=== PATIENT | male | born 1970 | race Caucasian/White ===

== ENCOUNTER → 2017-07-11 | Outpatient (CLI) | payer BC ==
[2017-07-11 07:35] LABS: HGB 15.4 gm/dL (13.0-17.5); MCH 28.7 pg (25.0-35.0); MCHC 31.4 g/dL (31.0-37.0); MCV 91.4 fL (80.0-100.0); Platelet Count 184 k/uL (150-450); RBC 5.36 m/uL (4.30-5.90); RDW 14.5 % (11.5-15.5); WBC 4.6 k/uL (3.8-10.6)
[2017-07-11 07:50] LABS: Albumin 4.6 g/dL (3.5-5.0); Bilirubin, Delta 0.2 mg/dL (0.0-0.2); Bilirubin,Unconjugated 0.2 mg/dL (0.0-1.1); Total Bilirubin 0.4 mg/dL (0.2-1.3); Total Protein 7.1 g/dL (6.3-8.2)
== END | disposition home or self-care (01) ==
LOC: LABWHC1 06:43
PROVIDERS: ATTEND Internal Medicine
DX: F64.0 Transsexualism (principal)
CPT/HCPCS: 36415; 80076; 84403; 85027

== ENCOUNTER → 2018-03-04 | Outpatient (CLI) | payer BC ==
[2018-03-04 09:14] LABS: HCT 50.6 % (39.0-53.0); HGB 16.1 gm/dL (13.0-17.5); MCH 29.2 pg (25.0-35.0); MCHC 31.8 g/dL (31.0-37.0); MCV 91.8 fL (80.0-100.0); Mean Platelet Volume 7.1; Platelet Count 170 k/uL (150-450); RBC 5.51 m/uL (4.30-5.90); RDW 13.4 % (11.5-15.5); WBC 4.5 k/uL (3.8-10.6)
[2018-03-04 09:18] LABS: ALT 29 U/L (21-72); AST 26 U/L (17-59); Albumin 4.4 g/dL (3.5-5.0); Alkaline Phosphatase 68 U/L (38-126); Anion Gap 8 mmol/L; Blood Urea Nitrogen 15 mg/dL (9-20); Calcium 9.8 mg/dL (8.4-10.2); Carbon Dioxide 27 mmol/L (22-30); Chloride 107 mmol/L (98-107); Cholesterol 191 mg/dL (<200); Glucose 86 mg/dL (74-99); HDL Cholesterol 57 mg/dL (40-60); LDL Cholesterol,Calculated 121 mg/dL (0-99); Potassium 4.3 mmol/L (3.5-5.1); Sodium 142 mmol/L (137-145); Total Bilirubin 0.5 mg/dL (0.2-1.3); Triglycerides 65 mg/dL (<150)
[2018-03-04 18:37] LABS: Hemoglobin A1C 4.9 % (4.0-6.0)
== END | disposition home or self-care (01) ==
LOC: LABWHC1 08:34
PROVIDERS: ATTEND Internal Medicine
DX: F64.0 Transsexualism (principal); E04.1 Nontoxic single thyroid nodule; Z83.3 Family history of diabetes mellitus
CPT/HCPCS: 36415; 80053; 80061; 83036; 84403; 84443; 85027

== ENCOUNTER → 2019-01-06 | Outpatient (CLI) | payer BC ==
[2019-01-06 08:41] LABS: HCT 47.5 % (39.0-53.0); HGB 15.2 gm/dL (13.0-17.5); MCH 28.4 pg (25.0-35.0); MCV 88.8 fL (80.0-100.0); Mean Platelet Volume 6.9; Platelet Count 175 k/uL (150-450); RBC 5.35 m/uL (4.30-5.90); RDW 13.5 % (11.5-15.5); WBC 4.5 k/uL (3.8-10.6)
[2019-01-06 17:04] LABS: African American GFR (CKD) 117.5 (60.0-200.0); Albumin 4.6 g/dL (3.80-4.90); Albumin/Globulin Ratio 2.71 (1.60-3.17); Anion Gap 10.4 mmol/L (4.00-12.00); BUN/Creat Ratio 12.22 Ratio (12.00-20.00); Calcium 9.6 mg/dL (8.7-10.3); Carbon Dioxide 24.6 mmol/L (21.6-31.8); Globulin 1.7 g/dL (1.6-3.3); Potassium 3.9 mmol/L (3.5-5.5); Total Bilirubin 0.8 mg/dL (0.2-1.2); Total Protein 6.3 g/dL (6.2-8.2)
== END | disposition home or self-care (01) ==
LOC: LABWHC1 08:11
PROVIDERS: ATTEND Internal Medicine
DX: F64.0 Transsexualism (principal); E78.5 Hyperlipidemia, unspecified; E04.1 Nontoxic single thyroid nodule
CPT/HCPCS: 36415; 80053; 80061; 84403; 84443; 85027

== ENCOUNTER → 2020-01-28 | Outpatient (CLI) | payer BC ==
[2020-01-28 08:48] LABS: HCT 47.5 % (39.0-53.0); HGB 15.2 gm/dL (13.0-17.5); MCH 28.8 pg (25.0-35.0); MCHC 32.1 g/dL (31.0-37.0); Mean Platelet Volume 8.1; Platelet Count 164 k/uL (150-450); RBC 5.28 m/uL (4.30-5.90); RDW 12.7 % (11.5-15.5); WBC 3.9 k/uL (3.8-10.6)
[2020-01-28 17:20] LABS: African American GFR (CKD) 116.6 (60.0-200.0); Albumin 4.5 g/dL (3.80-4.90); Albumin/Globulin Ratio 2.37 (1.60-3.17); Anion Gap 3.7 mmol/L (4.00-12.00); BUN/Creat Ratio 17.78 Ratio (12.00-20.00); Carbon Dioxide 30.3 mmol/L (21.6-31.8); Globulin 1.9 g/dL (1.6-3.3); Non-African American GFR(CKD) 100.6 (60.0-200.0); Potassium 4.9 mmol/L (3.5-5.5); Total Bilirubin 0.6 mg/dL (0.3-1.2); Total Protein 6.4 g/dL (6.2-8.2)
== END | disposition home or self-care (01) ==
LOC: LABWHC1 07:12
PROVIDERS: ATTEND Internal Medicine
DX: E04.1 Nontoxic single thyroid nodule (principal); F64.0 Transsexualism
CPT/HCPCS: 36415; 80053; 84403; 84443; 85027

== ENCOUNTER → 2021-02-09 | Outpatient (CLI) | payer BC ==
[2021-02-09 11:54] LABS: HCT 47.6 % (39.6-50.0); HGB 15.2 g/dL (13.0-17.0); MCH 28.8 pg (27.0-32.0); MCHC 31.9 g/dL (32.0-37.0); MCV 90.3 fL (80.0-97.0); Mean Platelet Volume 10.9 fL (9.5-12.2); Platelet Count 181 X 10*3/uL (140-440); RBC 5.27 X 10*6/uL (4.40-5.60); RDW 13.2 % (11.5-14.5); WBC 4.83 X 10*3/uL (4.50-10.00)
[2021-02-09 11:55] LABS: African American GFR (CKD) 90.9 (60.0-200.0); Albumin 4.5 g/dL (3.80-4.90); Albumin/Globulin Ratio 2.14 (1.60-3.17); Anion Gap 7.9 mmol/L (4.00-12.00); BUN/Creat Ratio 16.36 Ratio (12.00-20.00); Carbon Dioxide 29.1 mmol/L (21.6-31.8); Chol/HDL Ratio 3.95; Globulin 2.1 g/dL (1.6-3.3); LDL Cholesterol,Calculated 147.2 mg/dL (0.0-131.0); Non-African American GFR(CKD) 78.4 (60.0-200.0); Potassium 4.2 mmol/L (3.5-5.5); Total Bilirubin 0.5 mg/dL (0.2-1.2); Total Protein 6.6 g/dL (6.2-8.2); VLDL Calculation 29.8 mg/dL (5.00-40.00)
== END | disposition home or self-care (01) ==
LOC: LABWHC1 07:06
PROVIDERS: ATTEND Internal Medicine
DX: E78.5 Hyperlipidemia, unspecified (principal); E04.1 Nontoxic single thyroid nodule; F64.0 Transsexualism
CPT/HCPCS: 36415; 80053; 80061; 84403; 84443; 85027

== ENCOUNTER → 2021-10-06 | Outpatient (CLI) | payer BC ==
[2021-10-06 10:19] LABS: HCT 46.7 % (39.6-50.0); HGB 15.1 g/dL (13.0-17.0); MCH 28.9 pg (27.0-32.0); MCHC 32.3 g/dL (32.0-37.0); MCV 89.5 fL (80.0-97.0); Mean Platelet Volume 10.6 fL (9.5-12.2); NRBC Per 100 WBC 0 /100 WBCS (0.0-0.0); Platelet Count 208 X 10*3/uL (140-440); RBC 5.22 X 10*6/uL (4.40-5.60); RDW 12.8 % (11.5-14.5)
== END | disposition home or self-care (01) ==
LOC: LABWHC1 07:16
PROVIDERS: ATTEND Internal Medicine
DX: Z78.9 Other specified health status (principal)
CPT/HCPCS: 36415; 84403; 85027

== ENCOUNTER → 2022-04-15 | Outpatient (CLI) | payer BC ==
[2022-04-15 14:31] LABS: HCT 44.7 % (39.6-50.0); HGB 15.3 g/dL (13.0-17.0); MCHC 34.2 g/dL (32.0-37.0); MCV 87.6 fL (80.0-97.0); Mean Platelet Volume 10.8 fL (9.5-12.2); NRBC Per 100 WBC 0 /100 WBCS (0.0-0.0); Platelet Count 208 X 10*3/uL (140-440); RDW 13.2 % (11.5-14.5); WBC 3.98 X 10*3/uL (4.50-10.00)
[2022-04-15 15:12] LABS: ALT 14 U/L (10-49); AST 17 U/L (14-35); African American GFR (CKD) 101.3 (60.0-200.0); Albumin 4.8 g/dL (3.8-4.9); Alkaline Phosphatase 65 U/L (41-126); Blood Urea Nitrogen 10.5 mg/dL (9.0-27.0); Chloride 101 mmol/L (96-109); Glucose 92 mg/dL (70-110); Non-African American GFR(CKD) 87.4 (60.0-200.0); Potassium 4.2 mmol/L (3.5-5.5); Sodium 139 mmol/L (135-145); Total Protein 6.8 g/dL (6.2-8.2)
== END | disposition home or self-care (01) ==
LOC: LABWHC1 08:35
PROVIDERS: ATTEND Internal Medicine
DX: E04.1 Nontoxic single thyroid nodule (principal); Z78.9 Other specified health status; Z83.3 Family history of diabetes mellitus
CPT/HCPCS: 36415; 80053; 83036; 84403; 84443; 85027

== ENCOUNTER → 2022-10-22 | Outpatient (CLI) | payer BC ==
[2022-10-22 20:37] LABS: ALT 21 U/L (10-49); AST 27 U/L (14-35); African American GFR (CKD) 114.2 (60.0-200.0); Albumin 5.5 g/dL (3.8-4.9); Albumin/Globulin Ratio 2.75 (1.60-3.17); Alkaline Phosphatase 67 U/L (41-126); Calcium 10.5 mg/dL (8.7-10.3); Carbon Dioxide 24.2 mmol/L (20.0-27.5); Chloride 100 mmol/L (96-109); Glucose 83 mg/dL (70-110); Non-African American GFR(CKD) 98.5 (60.0-200.0); Potassium 4.5 mmol/L (3.5-5.5); Sodium 141 mmol/L (135-145); Total Protein 7.5 g/dL (6.2-8.2)
[2022-10-22 22:57] LABS: HCT 49.2 % (39.6-50.0); HGB 15.5 g/dL (13.0-17.0); MCH 28.9 pg (27.0-32.0); MCHC 31.5 g/dL (32.0-37.0); MCV 91.6 fL (80.0-97.0); Mean Platelet Volume 11.9 fL (9.5-12.2); NRBC Per 100 WBC 0 /100 WBCS (0.0-0.0); Platelet Count 178 X 10*3/uL (140-440); RBC 5.37 X 10*6/uL (4.40-5.60); RDW 13.1 % (11.5-14.5); WBC 3.97 X 10*3/uL (4.50-10.00)
== END | disposition home or self-care (01) ==
LOC: LABWHC1 13:12
PROVIDERS: ATTEND Internal Medicine
DX: E04.1 Nontoxic single thyroid nodule (principal); Z78.9 Other specified health status; Z83.3 Family history of diabetes mellitus
CPT/HCPCS: 36415; 80053; 83036; 84403; 84443; 85027

== ENCOUNTER → 2023-01-10 | Outpatient (CLI) | payer BC ==
[2023-01-10 22:09] LABS: Calcium 10.4 mg/dL (8.7-10.3)
== END | disposition home or self-care (01) ==
LOC: LABWHC1 14:08
PROVIDERS: ATTEND Internal Medicine
DX: E83.52 Hypercalcemia (principal); Z78.9 Other specified health status
CPT/HCPCS: 36415; 82306; 82310; 83970; 84403

== ENCOUNTER → 2023-04-19 | Outpatient (CLI) | payer BC ==
[2023-04-19 19:46] LABS: Calcium 9.9 mg/dL (8.7-10.3)
== END | disposition home or self-care (01) ==
LOC: LABWHC1 13:49
PROVIDERS: ATTEND Internal Medicine
DX: E83.52 Hypercalcemia (principal); Z78.9 Other specified health status
CPT/HCPCS: 36415; 82306; 82310; 84403

== ENCOUNTER 2023-05-01 18:53 | Emergency (ER) | payer BC ==
[2023-05-01 19:15] VITALS: TEMP 98.5
--- NOTE | 2023-05-01 19:49 | ED ---
General Adult HPI - General Chief complaint: Urogenital Stated complaint: UTI Time Seen by Provider: 05/01/23 19:13 Source: patient Mode of arrival: ambulatory Limitations: no limitations - History of Present Illness Initial comments: 53-year-old female to male presents to the ED with a chief complaint of dysuria. Patient states for the past 2 days she has had dysuria frequency and urgency. Since onset reports pain has worsened in severity. Denies flank pain. Eyes fever or chills. No chest pain shortness of breath. No other complaints. - Related Data Allergies Allergy/AdvReac Type Severity Reaction Status Date / Time No Known Allergies Allergy Verified 05/01/23 19:01 Review of Systems ROS Statement: Those systems with pertinent positive or pertinent negative responses have been documented in the HPI. ROS Other: All systems not noted in ROS Statement are negative. Past Medical History Past Medical History: CVA/TIA History of Any Multi-Drug Resistant Organisms: None Reported Past Psychological History: No Psychological Hx Reported Smoking Status: Never smoker Past Alcohol Use History: Occasional Past Drug Use History: None Reported General Exam Limitations: no limitations General appearance: alert, in no apparent distress Neck exam: Present: normal inspection Respiratory exam: Present: normal lung sounds bilaterally Cardiovascular Exam: Present: regular rate, normal rhythm GI/Abdominal exam: Present: soft (Suprapubic tenderness to palpation. No rebound guarding or rigidity.) Neurological exam: Present: alert, oriented X3 Skin exam: Present: warm, dry Course Vital Signs 05/01/23 18:57 Temperature 98.5 F Pulse Rate 75 Respiratory 18 Rate Blood Pressure 135/89 O2 Sat by Pulse 99 Oximetry Medical Decision Making - Medical Decision Making Was pt. sent in by a medical professional or institution (Dr. PA, FUR MATCHER, urgent care, hospital, or [facility]...) When possible be specific @ -No Did you speak to anyone other than the patient for history (EMS, parent, family, police, friend...)? What history was obtained from this source @ -No Did you review nursing and triage notes (agree or disagree)? Why? @ -I reviewed and agree with nursing and triage notes Were old charts reviewed (outside hosp., previous admission, EMS record, old EKG, old radiological studies, urgent care reports/EKG's, [facility] records)? Report findings @ -No old charts were reviewed Differential Diagnosis (chest pain, altered mental status, abdominal pain women, abdominal pain men, vaginal bleeding, weakness, fever, dyspnea, syncope, headache, dizziness, GI bleed, back pain, seizure, CVA, palpatations, mental health, musculoskeletal)? @ -Differential Abdominal Pain Women: Appendicitis, Cholecystitis, diverticulosis, ischemic bowel, pancreatitis, hepatitis, UTI, gastroenteritis, AAA, incarcerated hernia, bowel obstruction, constipation, inflammatory bowel, hepatitis, peptic ulcer disease, splenic infarction, perforated viscus, vulvitis, ovarian torsion, PID, kidney stone, placenta abruption, this is not meant to be an all-inclusive list EKG interpreted by me (3pts min.). @ -None X-rays interpreted by me (1pt min.). @ -None done CT interpreted by me (1pt min.). @ -None done U/S interpreted by me (1pt. min.). @ -None done What testing was considered but not performed or refused? (CT, X-rays, U/S, labs)? Why? @ -None What meds were considered but not given or refused? Why? @ -None Did you discuss the management of the patient with other professionals (professionals i.e. , PA, FUR MATCHER, lab, RT, psych nurse, drug abuse social worker, area representative, teacher, health promotion officer, social work case manager)? Give summary @ -No Was smoking cessation discussed for >3mins.? @ -No Was critical care preformed (if so, how long)? @ -No Were there social determinants of health that impacted care today? How? (Homeles sness, low income, unemployed, alcoholism, drug addiction, transportation, low edu. Level, literacy, decrease access to med. care, [facility], rehab)? @ -No Was there de-escalation of care discussed even if they declined (Discuss DNR or withdrawal of care, Hospice)? DNR status @ -No What co-morbidities impacted this encounter? (DM, HTN, Smoking, COPD, CAD, Cancer, CVA, ARF, Chemo, Hep., AIDS, mental health diagnosis, sleep apnea, morbid obesity)? @ -None Was patient admitted / discharged? Hospital course, mention meds given and route, prescriptions, significant lab abnormalities, going to OR and other pertinent info. @ -Discharge 53-year-old female to male presenting to the ED with a chief complaint of dysuria. UA here shows no significant evidence of infection. Patient denies vaginal discharge or concerns for STD. However at this time urine sample sent for chlamydia and gonorrhea testing. Patient reports that he bought Azo yesterday. Advises continuing this and follow up with PCP. At this time, patient is not having any flank tenderness to percussion or fever. Charged home in stable condition with stable vital signs, afebrile. Discussed return precautions with patient who verbalized agreement. Undiagnosed new problem with uncertain prognosis? @ -No Drug Therapy requiring intensive monitoring for toxicity (Heparin, Nitro, Insulin, Cardizem)? @ -No Were any procedures done? @ -No Diagnosis/symptom? @ -Dysuria Acute, or Chronic, or Acute on Chronic? @ -Acute Uncomplicated (without systemic symptoms) or Complicated (systemic symptoms)? @ -Uncomplicated Side effects of treatment? @ -No Exacerbation, Progression, or Severe Exacerbation? @ -No Poses a threat to life or bodily function? How? (Chest pain, USA, SC, pneumonia, PE, COPD, DKA, ARF, appy, cholecystitis, CVA, Diverticulitis, Homicidal, Suicidal, threat to staff... and all critical care pts) @ -No - Lab Data Lab Results 05/01/23 Range/Units 19:47 Urine Color Colorless Urine Appearance Clear (Clear) Urine pH 6.0 (5.0-8.0) Ur Specific Spurger 1.002 (1.001-1.035) Urine Protein Negative (Negative) Urine Glucose (UA) Negative (Negative) Urine Ketones Negative (Negative) Urine Blood Trace H (Negative) Urine Nitrite Negative (Negative) Urine Bilirubin Negative (Negative) Urine Urobilinogen <2.0 (<2.0) mg/dL Ur Leukocyte Esterase Small H (Negative) Urine WBC 2 (0-5) /hpf Disposition Clinical Impression: Dysuria Disposition: HOME SELF-CARE Condition: Good Additional Instructions: Please return to the Emergency Department if symptoms worsen or any other concerns. Continue taking Azo as needed for pain. 200 mg 3 times daily for up to 2 days. Follow-up with your primary care provider. Is patient prescribed a controlled substance at d/c from ED?: No Referrals: Marleen Trujillo MD [Primary Care Provider] - 1-2 days Time of Disposition: 20:50
[2023-05-01 20:27] LABS: Appearance,Urine Clear (Clear); Bilirubin,Urine Negative (Negative); Blood,Urine Trace (Negative); Color,Urine Colorless; Glucose,Urine (UA) Negative (Negative); Ketones,Urine Negative (Negative); Leukocyte Esterase,Urine Small (Negative); Nitrite,Urine Negative (Negative); Protein,Urine Negative (Negative); Specific Gravity,Urine 1.002 (1.001-1.035); Urobilinogen,Urine <2.0 mg/dL (<2.0); WBC,Urine 2 /hpf (0-5)
[2023-05-01 21:23] VITALS: BP 123/81; PULSE 81; RESP 16
== END 2023-05-01 21:11 | disposition home or self-care (01) ==
LOC: EC 18:53
DX: R30.0 Dysuria (principal)
CPT/HCPCS: 81001; 87491; 87591; 99283

== ENCOUNTER → 2023-10-18 | Outpatient (CLI) | payer BC ==
[2023-10-18 21:01] LABS: Calcium 10.5 mg/dL (8.7-10.3)
== END | disposition home or self-care (01) ==
LOC: LABWHC1 14:37
PROVIDERS: ATTEND Internal Medicine
DX: E83.52 Hypercalcemia (principal); Z78.9 Other specified health status
CPT/HCPCS: 36415; 82306; 82310; 84403

== ENCOUNTER → 2023-10-27 | Outpatient (CLI) | payer BC ==
[2023-10-27 18:58] LABS: HCT 47.7 % (39.6-50.0); HGB 15.2 g/dL (13.0-17.0); MCHC 31.9 g/dL (32.0-37.0); MCV 90.9 FL (80.0-97.0); Mean Platelet Volume 11.3 FL (9.5-12.2); NRBC Per 100 WBC 0 X 10*3/uL (0.00-0.01); Platelet Count 201 X 10*3/uL (140-440); RBC 5.25 X 10*6/uL (4.40-5.60); RDW 13.3 % (11.5-14.5); WBC 4.51 X 10*3/uL (4.50-10.00)
[2023-10-27 19:17] LABS: ALT 23 U/L (10-49); AST 27 U/L (14-35); Albumin 5.2 g/dL (3.8-4.9); Albumin/Globulin Ratio 2.36 Ratio (1.60-3.17); Alkaline Phosphatase 64 U/L (41-126); BUN/Creat Ratio 10.56 Ratio (12.00-20.00); Blood Urea Nitrogen 9.5 mg/dL (9.0-27.0); Calcium 10.5 mg/dL (8.7-10.3); Carbon Dioxide 21.7 mmol/L (21.6-31.8); Chloride 103 mmol/L (96-109); Globulin 2.2 g/dL (1.6-3.3); Glucose 100 mg/dL (70-110); Sodium 142 mmol/L (135-145); Total Bilirubin 0.4 mg/dL (0.3-1.2); Total Protein 7.4 g/dL (6.2-8.2)
== END | disposition home or self-care (01) ==
LOC: LABWHC1 14:51
PROVIDERS: ATTEND Internal Medicine
DX: E04.1 Nontoxic single thyroid nodule (principal); Z78.9 Other specified health status
CPT/HCPCS: 36415; 80053; 84443; 85027

== ENCOUNTER → 2024-05-05 | Outpatient (CLI) | payer BC ==
[2024-05-05 22:50] LABS: HCT 47.3 % (37.2-46.3); HGB 14.9 g/dL (12.0-15.0); MCH 28.9 pg (27.0-32.0); MCHC 31.5 g/dL (32.0-37.0); MCV 91.7 FL (80.0-97.0); Mean Platelet Volume 11.3 FL (9.5-12.2); NRBC Per 100 WBC 0 X 10*3/uL (0.00-0.01); Platelet Count 197 X 10*3/uL (140-440); RBC 5.16 X 10*6/uL (4.10-5.20); RDW 13.8 % (11.5-14.5)
[2024-05-05 23:25] LABS: BUN/Creat Ratio 9.56 Ratio (12.00-20.00); Blood Urea Nitrogen 8.6 mg/dL (9.0-27.0); Chol/HDL Ratio 3.21 Ratio; Glucose 99 mg/dL (70-110); LDL Cholesterol,Calculated 170.2 mg/dL (0.0-131.0); VLDL Calculation 18.52 mg/dL (5.00-40.00)
[2024-05-05 23:26] LABS: ALT 21 U/L (8-44); AST 25 U/L (13-35); Albumin 4.7 g/dL (3.8-4.9); Albumin/Globulin Ratio 2.04 Ratio (1.60-3.17); Alkaline Phosphatase 75 U/L (41-126); Carbon Dioxide 25.4 mmol/L (21.6-31.8); Chloride 104 mmol/L (96-109); Globulin 2.3 g/dL (1.6-3.3); Potassium 4.3 mmol/L (3.5-5.5); Sodium 141 mmol/L (135-145); Total Bilirubin 0.4 mg/dL (0.3-1.2)
== END | disposition home or self-care (01) ==
LOC: LABWHC1 09:53 → EDSEX 09:53
PROVIDERS: ATTEND Internal Medicine
DX: E78.5 Hyperlipidemia, unspecified (principal); E67.3 Hypervitaminosis D; E04.1 Nontoxic single thyroid nodule; Z78.9 Other specified health status
CPT/HCPCS: 36415; 80053; 80061; 82306; 83036; 84403; 84443; 85027